=== PATIENT | female | born 1940 | race Caucasian/White ===

== ENCOUNTER 2021-06-13 08:24 | Emergency (ER) | payer MEDICARE, SELFPAY ==
[2021-06-13 08:25] VITALS: BP 185/92; PULSE 68; RESP 18; TEMP 36.5; O2SAT 98; BMI 29.0
--- NOTE | 2021-06-13 08:26 | DI.RAD.S_ITS ---
PROCEDURE: XR CHEST 1V INDICATIONS: chest pain and SOB TECHNIQUE: One view of the chest was acquired. COMPARISON: None. FINDINGS: Surgical changes and devices: Partially visualized bilateral shoulder arthroplasty. Pacer device. Lungs and pleura: Trace blunting of the right costophrenic angle. Minimal appearance of bibasilar coarsening, right greater than left. Mediastinum: Mediastinal contours appear normal. Heart size is enlarged. Bones and chest wall: No suspicious bony lesions. Overlying soft tissues appear unremarkable. IMPRESSION: Trace right costophrenic blunting possibly related to scarring vs effusion. Coarsening at the bases which could be related to dependent change. However, developing atelectasis vs pneumonia. Dictated by: Lubna Rendon M.D. on 06/13/2021 at 9:57 Approved by: Lubna Rendon M.D. on 06/13/2021 at 10:04
--- NOTE | 2021-06-13 08:49 | ED.GENADULT ---
HPI - General Adult General Chief complaint: Chest Pain Stated complaint: Chest pain, SOB Time Seen by Provider: 06/13/21 08:25 Source: patient Mode of arrival: Ambulatory Limitations: no limitations History of Present Illness HPI narrative: 80-year-old female here for evaluation of left-sided sharp chest discomfort. She has had discomfort like this in the past but his lasted a very short amount of time. When it is at its maximum she does get somewhat short of breath. Her current discomfort has been going on since approximately 0400 hours this morning. She feels that it has been constant but has been more frequent than what it has been. She has no headache. When it is at its maximum she does get some shortness of breath. She had COVID like symptoms recently but never tested but assumes that she had COVID. She still has a residual cough because of this. Denies any abdominal pain. No nausea vomiting. No lower extremity swelling. No history of coronary artery disease. She is being evaluated by Cardiology for what sounds like atrial fibrillation. She has a loop recorder in place. Not on blood thinners. No underlying lung issues. Related Data Allergies Allergy/AdvReac Type Severity Reaction Status Date / Time No Known Drug Allergies Allergy Verified 06/13/21 08:53 Review of Systems Constitutional Constitutional: Denies fever(s) and Denies headache(s) ENT Ears, Nose, Mouth, and Throat: Denies headache(s) Cardiovascular Cardiovascular: Reports as per HPI and Reports system reviewed and no additional complaints, except as documented Respiratory Respiratory: Reports as per HPI and Reports system reviewed and no additional complaints, except as documented Gastrointestinal Gastrointestinal: Reports system reviewed and no additional complaints, except as documented Integumentary/Breasts Skin/Breast: Reports system reviewed and no additional complaints, except as documented Neurologic Neurologic: Denies headache(s) Hematologic/Lymphatic On Anticoagulants: No Allergic/Immunologic Allergic/Immunologic: Reports system reviewed and no additional complaints, except as documented Patient History Medical History (Updated 06/13/21 @ 11:34 by Simone Martin DO) Atrial fibrillation Social History marital status: lives independently: Yes Smoking Status: Never smoker Exam Initial Vital Signs Initial Vital Signs: Vital Signs Temperature 97.7 F 06/13/21 08:25 Pulse Rate 68 06/13/21 08:25 Respiratory Rate 18 06/13/21 08:25 Blood Pressure 185/92 H 06/13/21 08:25 Pulse Oximetry 98 06/13/21 08:25 Const General: cooperative and comfortable HENMT Head: normal to inspection and normocephalic Resp Effort & Inspection: normal respiratory effort Auscultation: clear to auscultation bilaterally Cardio Rate: regular rate Rhythm: abnormal rhythm GI Inspection: normal to inspection Skin General: no rashes or lesions noted Neuro General: patient alert, patient awake, patient oriented x3 and moves all extremities Extrem General: No edema Psych Appearance: grossly normal and well kempt Course Orders Ordered: ED Orders 06/13/21 08:26 XR chest 1V Stat 06/13/21 08:40 Complete Blood Count AUTO DIFF Stat Comprehensive Metabolic Panel Stat Lipase Stat NT-proBNP (BNP-Adult 18+) Stat Troponin & CK Cardiac Panel Stat EKG-12 Lead Stat 06/13/21 10:58 Troponin I Stat Vital Signs Vital signs: Vital Signs - 8 hr 06/13/21 08:25 Temperature 97.7 F Pulse Rate 68 Respiratory Rate 18 Blood Pressure 185/92 H Pulse Oximetry 98 Medical Decision Making Lab Data Lab results reviewed: Yes I reviewed the patient's lab results. Result diagrams: 06/13/21 08:40 06/13/21 08:40 Labs: Lab Results 06/13/21 06/13/21 06/13/21 Range/Units 08:40 08:40 10:58 WBC 6.3 (4.5-11.0) X10^3/uL RBC 4.87 (4.0-5.2) X10^6/uL Hgb 13.6 (12.0-16.0) g/dL Hct 40.9 (36-46) % MCV 84.1 (80-100) fL MCH 28.0 (26-34) PG MCHC 33.3 (30-36) % RDW 14.1 (11.6-14.8) % Plt Count 194 (150-400) X10^3/uL Neut % (Auto) 55.8 (50-75) % Lymph % (Auto) 33.4 (25-40) % Ada % (Auto) 5.5 (3-14) % Eos % (Auto) 4.7 H (2-4) % Baso % (Auto) 0.6 (0-2) % Neut # (Auto) 3500 (4675-7001) /uL Lymph # (Auto) 2100 (6512-0973) /uL Ada # (Auto) 300 (0-900) /uL Eos # (Auto) 300 (0-450) /uL Baso # (Auto) 0 (0-100) /uL Sodium 139 (137-145) mmol/L Potassium 4.2 (3.4-5.1) mmol/L Chloride 107 (98-107) mmol/L Carbon Dioxide 31 (22-32) mmol/L BUN 14 (7-17) mg/dL Creatinine 0.96 (0.52-1.04) mg/dL Estimated GFR 55.9 L (>60) mL/min BUN/Creatinine Ratio 14.6 (6-22) Glucose 132 H (80-110) mg/dL Calcium 8.9 (8.4-10.2) mg/dL Total Bilirubin 0.6 (0.2-1.3) mg/dL AST 41 H (14-36) IU/L ALT 43 H (<35) IU/L Alkaline Phosphatase 96 (38-126) U/L Total Creatine Kinase 34 (30-135) U/L CK-MB (CK-2) TNP CK-MB (CK-2) Rel Index TNP Troponin I < 0.012 < 0.012 (0.01-0.034) ng/mL NT-Pro-B Natriuret Pep 242 (<450) pg/mL Total Protein 6.9 (6.3-8.2) g/dL Albumin 3.9 (3.5-5.0) g/dL Globulin 3.0 (1.7-4.1) g/dL Albumin/Globulin Ratio 1.3 (1.0-2.8) Lipase 149 (23-300) U/L Imaging Data Chest x-ray: Radiologist's Impression: [address] [address] XRay Report Signed Patient: Veronica Eng MR#: [id number] : 1940 Acct:[id number] Age/Sex: 80 / F Date of Service: 06/13/21 Loc: ED Accession Number: [id number] ?? Procedure: XR chest 1V Ordering Provider: Simone Martin D.O. PROCEDURE:? XR CHEST 1V ? INDICATIONS:? chest pain and SOB ? TECHNIQUE:? One view of the chest was acquired.? ? COMPARISON:? None. ? FINDINGS:? ? Surgical changes and devices:? Partially visualized bilateral shoulder arthroplasty.? Pacer device. ? Lungs and pleura:? Trace blunting of the right costophrenic angle.? Minimal appearance of bibasilar coarsening, right greater than left. ? Mediastinum:? Mediastinal contours appear normal.? Heart size is enlarged.? ? Bones and chest wall:? No suspicious bony lesions.? Overlying soft tissues appear unremarkable.? ? IMPRESSION:? Trace right costophrenic blunting possibly related to scarring vs effusion.? Coarsening at the bases which could be related to dependent change.? However, developing atelectasis vs pneumonia. ? ? Dictated by: Lubna Rendon M.D. on 06/13/2021 at 9:57 ? ? Approved by: Lubna Rendon M.D. on 06/13/2021 at 10:04?? ECG Data Attestation: I personally reviewed and interpreted this ECG as follows: Interpretation: Paroxysmal atrial fibrillation Ventricular rate of 70 Normal QRS Normal QTC Left axis deviation No ST T wave changes MDM Narrative Medical decision making narrative: Patient has had 2- troponins. Does appear that she is having paroxysmal atrial fibrillation as both on her EKG and on the monitor she has periods of sinus rhythm and rate controlled AFib. She is on anticoagulation. Patient initially did not want to stay for 2nd troponin however she did agree to this after having a discussion with her . Will have her contact her computer forensic examiner for follow-up when she returns home for further evaluation and treatment. She was given return precautions. She expressed understanding and agreement. Discharge Plan Departure Patient Disposition: Home Clinical Impression: Atypical chest pain Instructions: DI for Atypical Chest Pain Activity Restrictions/Additional Instructions: Continues to take all of your medications as directed. I do recommend you contact your computer forensic examiner tomorrow for a follow-up when you return home. Return to the emergency department for any new or worsening symptoms.
[2021-06-13 08:55] LABS: Add Manual Diff / Slide Review NO; Basophils Absolute Auto 0 /uL (0-100); Basophils Percent Auto 0.6 % (0-2); Eosinophils Absolute Auto 300 /uL (0-450); Eosinophils Percent Auto 4.7 % (2-4); Hematocrit 40.9 % (36-46); Hemoglobin 13.6 g/dL (12.0-16.0); Lymphocytes Absolute Auto 2100 /uL (1100-4500); Lymphocytes Percent Auto 33.4 % (25-40); Mean Corpuscular HGB Conc 33.3 % (30-36); Mean Corpuscular Volume 84.1 fL (80-100); Monocytes Absolute Auto 300 /uL (0-900); Monocytes Percent Auto 5.5 % (3-14); Neutrophils Absolute Auto 3500 /uL (1500-7000); Neutrophils Percent Auto 55.8 % (50-75); Platelet Count 194 X10^3/uL (150-400); Red Blood Cell Count 4.87 X10^6/uL (4.0-5.2); Red Cell Distribution Width 14.1 % (11.6-14.8); White Blood Cell Count 6.3 X10^3/uL (4.5-11.0)
[2021-06-13 09:06] LABS: Alanine Aminotransferase 43 IU/L (<35); Albumin 3.9 g/dL (3.5-5.0); Albumin Globulin Ratio 1.3 (1.0-2.8); Alkaline Phosphatase 96 U/L (38-126); Aspartate Aminotransferase 41 IU/L (14-36); BUN Creatinine Ratio 14.6 (6-22); Bilirubin Total 0.6 mg/dL (0.2-1.3); Blood Urea Nitrogen 14 mg/dL (7-17); Calcium 8.9 mg/dL (8.4-10.2); Carbon Dioxide 31 mmol/L (22-32); Chloride 107 mmol/L (98-107); Creatine Kinase 34 U/L (30-135); Estimated Glomerular Filt Rate 55.9 mL/min (>60); Glucose 132 mg/dL (80-110); HEMOLYSIS < 15 (0-50); Lipase 149 U/L (23-300); Potassium 4.2 mmol/L (3.4-5.1); Sodium 139 mmol/L (137-145); Total Protein 6.9 g/dL (6.3-8.2)
[2021-06-13 09:16] LABS: NT-proBNP (BNP-Adult 18+) 242 pg/mL (<450); Troponin I < 0.012 ng/mL (0.01-0.034)
[2021-06-13 11:00] VITALS: BP 131/66; PULSE 65; RESP 21; O2SAT 96
--- NOTE | 2021-06-13 11:04 | PC.NURSE ---
compliance monitor at desk and vitals monitor not uploading patient information to auto-transfer vitals. Patient vitals are as follows: 0900 Blood pressure: 139/66 SPO2: 97% Heart rate: 67 RR: 17 0930 Blood pressure: 138/67 SPO2: 92 Heart rate: 69 RR: 18 1000 Blood pressure: 151/67 SPO2: 95 Heart rate: 63 RR: 23
[2021-06-13 11:25] LABS: Troponin I < 0.012 ng/mL (0.01-0.034)
[2021-06-13 11:41] VITALS: BP 143/64; PULSE 64; RESP 18; O2SAT 96
== END 2021-06-13 11:48 | disposition home or self-care (01) ==
PROVIDERS: Emergency Provider Emergency Medicine
DX: R07.89 Other chest pain (principal); Z79.01 Long term (current) use of anticoagulants
CPT/HCPCS: 36415; 71045; 80053; 82550; 83690; 83880; 84484; 85025; 93005; 99284